=== PATIENT | male | born 1950 | race Caucasian/White ===

== ENCOUNTER → 2021-03-21 | Outpatient (CLI) | payer OTHER ==
[~2021-03-21] MED LIST: ALEN70; ASPI325; CEPH500 PO; HYDACE10B PO; IBUP400; LACT10SY PO; MAGCIT300 PO
[2021-03-21 18:31] LABS: Alanine Aminotransfer (ALT/SGP 41 U/L (12-78); Albumin, Blood 4.1 g/dL (3.4-5.0); Albumin/Globulin Ratio 1.1 (0.8-1.8); Alk Phos 73 U/L (50-136); Anion Gap 7 mmol/L (6-16); Aspartate Aminotrans (AST/SGOT 14 U/L (12-37); Bilirubin, Total 0.3 mg/dL (0.1-1.0); Blood Urea Nitrogen 28 mg/dL (8-24); Bun/Creatinine Ratio 22.8 (12.0-20.0); CO2, Blood 23 mmol/L (21-32); Calcium, Blood 9.2 mg/dL (8.5-10.1); Chloride, Blood 103 mmol/L (98-108); Creatinine, Blood 1.23 mg/dL (0.60-1.20); Globulin, Blood 3.8 g/dL (2.2-4.0); Glomerular Filtration Rate >60 (60-); Glucose, Blood 364 mg/dL (70-99); Potassium, Blood 4.2 mmol/L (3.5-5.5); Sodium, Blood 133 mmol/L (136-145); Total Protein, Blood 7.9 g/dL (6.4-8.2)
[2021-03-21 18:53] LABS: BASOPHILS ABSOLUTE AUTO 0.03 K/mm3 (0.00-0.23); BASOPHILS PERCENT AUTO 1 % (0-2); EOSINOPHILS ABSOLUTE AUTO 0.12 K/mm3 (0.00-0.68); EOSINOPHILS PERCENT AUTO 2 % (0-6); Hemoglobin 15.1 g/dL (13.5-17.5); IMMATURE GRAN ABSOLUTE AUTO 0.01 K/mm3 (0.00-0.10); IMMATURE GRAN PERCENT AUTO 0 % (0-1); LYMPHOCYTES ABSOLUTE AUTO 0.92 K/mm3 (0.84-5.20); LYMPHOCYTES PERCENT AUTO 18 % (21-46); MONOCYTES PERCENT AUTO 6 % (4-13); Mean Corpuscular HGB 31.5 pg (26.0-34.0); Mean Corpuscular HGB Conc 35.1 g/dL (31.5-36.5); Mean Corpuscular Volume 90 fL (80-100); Mean Platelet Volume 9.8 fL (9.1-12.4); NEUTROPHILS ABSOLUTE AUTO 3.66 K/mm3 (1.96-9.15); NEUTROPHILS PERCENT AUTO 73 % (41-73); Platelet Count 223 K/mm3 (150-400); RDW Coefficient Variation 12.6 % (11.7-14.2); RDW Standard Deviation 40.9 fL (35.1-46.3); Red Blood Cell Count 4.79 M/mm3 (4.30-5.90); White Blood Cell Count 5.04 K/mm3 (4.00-11.30)
== END | disposition home or self-care (01) ==
LOC: LAB SHORT 18:10
PROVIDERS: Family Medicine
DX: I10 Essential (primary) hypertension (principal)
CPT/HCPCS: 80053; 85025

== ENCOUNTER 2021-05-31 14:56 | Inpatient (IN) | payer OTHER ==
[~2021-05-31] VITALS: Ht 177.8 cm; Wt 96.8 kg
[2021-05-31 15:18] LABS: Bicarbonate Venous 6.8 mmol/L (24.0-30.0); PO2 Venous 85.2 mmHg (38-42)
[2021-05-31 15:19] LABS: pH Blood Venous 6.82 (7.34-7.37)
[2021-05-31 15:23] LABS: Hemoglobin 15.3 g/dL (13.5-17.5); Mean Corpuscular HGB 31.8 pg (26.0-34.0); Mean Corpuscular HGB Conc 27.3 g/dL (31.5-36.5); Mean Corpuscular Volume 116 fL (80-100); Mean Platelet Volume 11.8 fL (9.1-12.4); Platelet Count 359 K/mm3 (150-400); RDW Coefficient Variation 14.3 % (11.7-14.2); RDW Standard Deviation 63.1 fL (35.1-46.3); Red Blood Cell Count 4.81 M/mm3 (4.30-5.90); White Blood Cell Count 6.89 K/mm3 (4.00-11.30)
[2021-05-31] MEDS ORDERED: Prinivil10 MG PO (15:25)
[2021-05-31] MEDS ORDERED: HYDROCHLOROTH12.5 MG PO (15:25)
[2021-05-31] MEDS ORDERED: NEURONTIN300 MG PO (15:25)
[2021-05-31] MEDS ORDERED: IBU800 M1 PO (15:26)
[2021-05-31] MEDS ORDERED: FOSAMAX70 MG PO (15:27)
[2021-05-31 15:40] LABS: Calcium, Ionized (POC) 1.03 mmol/L (1.10-1.46); Chloride (POC) 105 mmol/L (98-108); Creatinine (POC) 5.8 mg/dL (0.8-1.3); Glucose (ISTAT POC) >700 mg/dL (70-99); Hemoglobin (POC) 16.3 g/dL (13.5-17.5); Potassium (POC) 7.7 mmol/L (3.5-5.5); Sodium (POC) 133 mmol/L (135-148); Total CO2 (POC) 9 mmol/L (21-32)
[2021-05-31 15:41] LABS: Ethanol (Alcohol), Blood, Med <3 mg/dL
[2021-05-31 15:52] LABS: Magnesium, Blood 4.9 mg/dL (1.6-2.4)
[2021-05-31 16:00] LABS: BAND PERCENT MAN 22 % (0-8); BASOPHILS PERCENT MAN 0 % (0-2); EOSINOPHILS PERCENT MAN 0 % (0-6); LYMPHOCYTES ABSOLUTE MAN 0.62 K/mm3 (0.84-5.20); LYMPHOCYTES PERCENT MAN 9 % (21-46); METAMYELOCYTE ABSOLUTE MAN 0.13 K/mm3 (0.00-0.00); METAMYELOCYTE PERCENT MAN 2 % (0-0); MONOCYTES ABSOLUTE MAN 0.13 K/mm3 (0.16-1.47); MONOCYTES PERCENT MAN 2 % (4-13); NEUTROPHILS ABSOLUTE MAN 5.99 K/mm3 (1.96-9.15); SEG NEUTROPHILS PERCENT MAN 65 % (41-73); TOTAL CELLS COUNTED 100
[2021-05-31 16:01] LABS: Alanine Aminotransfer (ALT/SGP 27 U/L (12-78); Albumin, Blood 3.2 g/dL (3.4-5.0); Albumin/Globulin Ratio 0.8 (0.8-1.8); Alk Phos 112 U/L (50-136); Anion Gap 27 mmol/L (6-16); Aspartate Aminotrans (AST/SGOT 39 U/L (12-37); Bilirubin, Total 0.4 mg/dL (0.1-1.0); Blood Urea Nitrogen 145 mg/dL (8-24); CO2, Blood 8 mmol/L (21-32); Calcium, Blood 8.9 mg/dL (8.5-10.1); Chloride, Blood 93 mmol/L (98-108); Globulin, Blood 4.1 g/dL (2.2-4.0); Glomerular Filtration Rate 10 (60-); Glucose, Blood 1690 mg/dL (70-99); Potassium, Blood 7.5 mmol/L (3.5-5.5); Sodium, Blood 128 mmol/L (136-145); Total Protein, Blood 7.3 g/dL (6.4-8.2)
[2021-05-31 16:09] LABS: U Amphetamine Screen Not Detected; U Barbituate Screen Not Detected; U Benzodiazapine Screen Not Detected; U Buprenorphine Screen Not Detected; U Cannabinoids Screen Not Detected; U Cocaine Screen Not Detected; U Methadone Screen Not Detected; U Methamphetamine Screen Not Detected; U Opiates Screen Not Detected; U Oxycodone Screen Not Detected; U Phencyclidine Screen Not Detected; U Propoxyphene Screen Not Detected
[2021-05-31 16:17] LABS: Creatine Kinase MB 2.1 ng/mL (0.0-3.6); Creatine Kinase MB Index 0.6 (0.0-4.0)
[2021-05-31 17:06] LABS: SARS-Cov-2 (COVID-19) PCR, MMC NEGATIVE (NEGATIVE)
[2021-05-31 17:20] LABS: International Normalized Ratio 1.09; Prothrombin Time Results 11.7 Sec (9.7-11.5)
[2021-05-31 18:03] LABS: Bicarbonate Venous 8.4 mmol/L (24.0-30.0); PCO2 Venous 34.2 mmHg (38-42); PO2 Venous 76.7 mmHg (38-42); pH Blood Venous 6.95 (7.34-7.37)
[2021-05-31 18:04] LABS: Base Excess Venous -24.5 mmol/L
[2021-05-31 18:15] LABS: Glucose, Blood 1586 mg/dL (70-99)
[2021-05-31 18:50] LABS: Bun/Creatinine Ratio 26.4 (12.0-20.0); Creatinine, Blood 5.31 mg/dL (0.60-1.20)
[2021-05-31 19:27] LABS: Potassium, Blood 5.5 mmol/L (3.5-5.5)
--- NOTE | 2021-05-31 20:00 | NUR ---
PT ADMITTED TO ROOM ICU 04 UNDER ICU STATUS FOR DKA. SLIDE TRANSFERRED TO BED. PT VENTED AND IS MAINTAINING SATURATIONS > 90 PERCENT. ON INSULIN DRIP AT 10 UNITS PER HOUR. LEVOPHED DRIP TO MAINTAIN MAP > 65. OGT CONNECTED TO LOW WALL SUCTION WITH RETURN OF LIQUID BROWNISH FLUID. DR BERG IN ROOM TO SEE PT. ORDERS RECEIVED. PLAN FOR HOURLY GLUCOSE CHECKS. PT HAS QUAD LUMEN CENTRAL LINE IN RIGHT UPPER CHEST. SAFESET SET UP FOR BLOOD DRAWS. WILL REVIEW CHART AND PLAN OF CARE FOR THIS PT.
[2021-05-31 20:18] LABS: Base Excess Venous -14.8 mmol/L; Bicarbonate Venous 13.9 mmol/L (24.0-30.0); PCO2 Venous 31.9 mmHg (38-42); PO2 Venous 45.2 mmHg (38-42); pH Blood Venous 7.22 (7.34-7.37)
[2021-05-31 20:43] LABS: Bun/Creatinine Ratio 28.8 (12.0-20.0); Calcium, Blood 8.6 mg/dL (8.5-10.1); Creatinine, Blood 4.83 mg/dL (0.60-1.20); Potassium, Blood 4.2 mmol/L (3.5-5.5)
[2021-05-31 22:12] LABS: Bun/Creatinine Ratio 28.2 (12.0-20.0); Calcium, Blood 8.3 mg/dL (8.5-10.1); Creatinine, Blood 4.64 mg/dL (0.60-1.20); Potassium, Blood 3.9 mmol/L (3.5-5.5)
[2021-05-31 22:13] LABS: Base Excess Venous -13.2 mmol/L; Bicarbonate Venous 15.2 mmol/L (24.0-30.0); PCO2 Venous 27.9 mmHg (38-42); PO2 Venous 45.4 mmHg (38-42); pH Blood Venous 7.29 (7.34-7.37)
--- NOTE | 2021-06-01 | NUR ---
HOURLY GLUCOSE CHECKS CONTINUE. PT MAINTAINS WITH VENT SETTINGS UNCHANGED. DR BENOIT HAS MADE ADJUSTMENTS IN ORDERS, AND HAS ADDED VASOPRESSIN TO PRESSORS FOR BLOOD PRESSURE SUPPORT. SEE VITAL SIGN FLOWSHEET FOR VALUES. HAVE SUCTIONED PT PER ETT WITH NO RETURN OF SECRETIONS.
[2021-06-01 00:47] LABS: Glucose, Blood 1011 mg/dL (70-99)
[2021-06-01 01:52] LABS: Bun/Creatinine Ratio 30.3 (12.0-20.0); Creatinine, Blood 4.12 mg/dL (0.60-1.20)
[2021-06-01 02:44] LABS: Glucose, Blood 1035 mg/dL (70-99)
[2021-06-01 03:29] LABS: Glucose, Blood 1016 mg/dL (70-99)
[2021-06-01 05:15] LABS: Anion Gap 18 mmol/L (6-16); Blood Urea Nitrogen 122 mg/dL (8-24); Bun/Creatinine Ratio 28.5 (12.0-20.0); CO2, Blood 13 mmol/L (21-32); Calcium, Blood 7.2 mg/dL (8.5-10.1); Chloride, Blood 106 mmol/L (98-108); Creatinine, Blood 4.28 mg/dL (0.60-1.20); Glomerular Filtration Rate 15 (60-); Glucose, Blood 1035 mg/dL (70-99); Potassium, Blood 4.4 mmol/L (3.5-5.5); Sodium, Blood 137 mmol/L (136-145)
[2021-06-01 05:28] LABS: Magnesium, Blood 2.7 mg/dL (1.6-2.4)
[2021-06-01 06:30] LABS: Glucose, Blood 1018 mg/dL (70-99)
--- NOTE | 2021-06-01 06:45 | NUR ---
PT HAS HAD STEADY NEED TO HAVE INCREASES IN PRESSORS. HAVE ADDED EPINEPHERINE TO HELP KEEP MAP > 60. CALL MADE TO PT'S DAUGHTER WITH NOTED PHONE WAS DISCONNECTED. LACTIC ACID LEVEL RECEIVED AT 7.2. DR BENOIT WAS MADE AWARE OF PT'S GLUCOSE AND HIS BLOOD PRESSURES WELL THE LACTIC ACID LEVEL. ORDERS WERE RECEIVED. WILL CONTINUE TO MONITOR PT, AND WILL REPORT OFF TO ONCOMING RN
[2021-06-01 06:48] LABS: Glucose, Blood 962 mg/dL (70-99)
--- NOTE | 2021-06-01 07:30 | NUR ---
ASSUMED CARE BEDSIDE REPORT RECIEVED. PT IS INTUBATED AND SEDATED. VENT SETTINGS AC 16, TV 500, PEEP 5, FIO2 75%. PT RR 30'S. PT SEDATED WITH PROPOFOL AT 40 MCG/KG/MIN. CENTRAL LINE IN PLACE TO [facility]. LEVOPHED INFUSING AT 30 MCG/MIN, EPI 10 MCG/MIN, AND VASOPRESSIN 0.04 UNITS/HR. INSULIN INFUSING AT 13 UNIT/HR AND 1/2 NS WITH 40 MEQ KCL AT 250 ML/HR. OGT IN PLACE WITH DARK BROWN LIQUID OUTPUT NOTED. MILTON TEMP PROBE IN PLACE WITH DARK YELLOW OUTPUT NOTED. PT WITHOUT COUGH OR GAG WITH SUCTION. SMALL FURROW OF BROW NOTED. DOES NOT WITHDRAW EXTREMITIES TO NOXIOUS STIMULI. NO FAMILY PRESENT. WILL CONTINUE TO MONITOR.
[2021-06-01 07:39] LABS: Anion Gap 17 mmol/L (6-16); Blood Urea Nitrogen 120 mg/dL (8-24); CO2, Blood 13 mmol/L (21-32); Chloride, Blood 107 mmol/L (98-108); Creatinine, Blood 4.29 mg/dL (0.60-1.20); Glomerular Filtration Rate 15 (60-); Glucose, Blood 889 mg/dL (70-99); Potassium, Blood 5.1 mmol/L (3.5-5.5); Sodium, Blood 137 mmol/L (136-145)
--- NOTE | 2021-06-01 08:29 | NUR ---
DR BECERRA UPDATE DR BECERRA CALLED AND UPDATED TO CURRENT PT CONDITION AND DECLINE IN BP. EPI GTT AT 20 MCG/MIN, LEVOPHED AT 30 MCG/MIN, AND VASOPRESSIN AT 0.04 UNITS/HR. ORDERS RECIEVED TO NOT FURTHER ESCALATE PRESSORS AT THIS TIME. ATTEMPTED TO CONTACT PT DAUGHTER AND NEICE. WILL CONTINUE TO MONITOR.
[2021-06-01 08:55] LABS: Glucose, Blood 813 mg/dL (70-99)
--- NOTE | 2021-06-01 09:15 | NUR ---
FAMILY UPDATE PT GIULIA LYNN CALLED BACK. UPDATED LEAH ABOUT CURRENT PT CONDITION AND SUPPORTIVE DEVICES/MEDS. LEAH REQUESTED TO MAKE PT DNR STATUS AT THIS TIME DUE TO CRITICAL CONDITION. PT REMAINS HYPOTENSIVE, PRESSORS UNCHANGED. DR BECERRA NOTIFIED. LEAH TO COME IN TO SEE PT.
[2021-06-01 11:29] LABS: Anion Gap 18 mmol/L (6-16); Blood Urea Nitrogen 111 mg/dL (8-24); Bun/Creatinine Ratio 26.9 (12.0-20.0); CO2, Blood 11 mmol/L (21-32); Calcium, Blood 6.5 mg/dL (8.5-10.1); Chloride, Blood 111 mmol/L (98-108); Creatinine, Blood 4.12 mg/dL (0.60-1.20); Glomerular Filtration Rate 15 (60-); Glucose, Blood 721 mg/dL (70-99); Potassium, Blood 5.3 mmol/L (3.5-5.5); Sodium, Blood 140 mmol/L (136-145)
--- NOTE | 2021-06-01 11:31 | NUR ---
pt aon carolyn homodyanmic support. His niece is here to visit. pt has a daughter who is not wanting to make decisions. Family expresses fears that she is using drugs. phone becca dempseyth her and niece and confirmed by nursing staff. Daughter defers to niece to be his decision maker. Review of patient with niece states he has been more inactive for some time and slowly declining. she states he would not want to be kept alive if he is getting sicker. They believe stronly in with dignity. If physican say he is worse she will withdraw care and place him on comfort.
[2021-06-01 11:57] LABS: Glucose, Blood 664 mg/dL (70-99)
[2021-06-01 14:18] LABS: Hematocrit 35.8 % (37.0-53.0); Hemoglobin 12.1 g/dL (13.5-17.5); Mean Corpuscular HGB 32.6 pg (26.0-34.0); Mean Corpuscular HGB Conc 33.8 g/dL (31.5-36.5); Mean Corpuscular Volume 97 fL (80-100); Mean Platelet Volume 10.9 fL (9.1-12.4); Platelet Count 143 K/mm3 (150-400); RDW Coefficient Variation 13.9 % (11.7-14.2); RDW Standard Deviation 49.1 fL (35.1-46.3); Red Blood Cell Count 3.71 M/mm3 (4.30-5.90); White Blood Cell Count 4.04 K/mm3 (4.00-11.30)
[2021-06-01 14:32] LABS: Beta-hydroxybutyrate 1.1 mg/dL (0.2-2.8)
[2021-06-01 14:36] LABS: Albumin, Blood 2.2 g/dL (3.4-5.0); Anion Gap 15 mmol/L (6-16); Blood Urea Nitrogen 105 mg/dL (8-24); Bun/Creatinine Ratio 27.3 (12.0-20.0); CO2, Blood 11 mmol/L (21-32); Calcium, Blood 6.1 mg/dL (8.5-10.1); Chloride, Blood 114 mmol/L (98-108); Creatinine, Blood 3.85 mg/dL (0.60-1.20); Glomerular Filtration Rate 17 (60-); Glucose, Blood 596 mg/dL (70-99); Phosphorus, Blood 2.9 mg/dL (2.5-4.9); Potassium, Blood 5.3 mmol/L (3.5-5.5); Sodium, Blood 140 mmol/L (136-145)
[2021-06-01 15:01] LABS: Vancomycin, Random 11.9 ug/mL
[2021-06-01 15:06] LABS: BAND PERCENT MAN 37 % (0-8); BASOPHILS PERCENT MAN 0 % (0-2); EOSINOPHILS PERCENT MAN 0 % (0-6); LYMPHOCYTES ABSOLUTE MAN 0.08 K/mm3 (0.84-5.20); LYMPHOCYTES PERCENT MAN 2 % (21-46); METAMYELOCYTE ABSOLUTE MAN 1.37 K/mm3 (0.00-0.00); METAMYELOCYTE PERCENT MAN 34 % (0-0); MONOCYTES ABSOLUTE MAN 0.04 K/mm3 (0.16-1.47); MONOCYTES PERCENT MAN 1 % (4-13); MYELOCYTE ABSOLUTE MAN 0.16 K/mm3 (0.00-0.00); MYELOCYTE PERCENT MAN 4 % (0-0); NEUTROPHILS ABSOLUTE MAN 2.38 K/mm3 (1.96-9.15); SEG NEUTROPHILS PERCENT MAN 22 % (41-73); TOTAL CELLS COUNTED 100
--- NOTE | 2021-06-01 17:26 | NUR ---
SHIFT SUMMARY PT REMAINS INTUBATED AND NOT SEDATED. PT VENT SETTINGS AC 16, TV 500, PEEP 8, FIO2 80%. PT WITH RR 30-40'S. PT IS MORE AWAKE THIS AFTERNOON. PT WITH SPONTANEOUS EXTREMITY MOVEMENTS AND OPENS EYES TO VOICE. PT DOES NOT FOLLOW COMMANDS, BUT LOOKS TOWARDS NAME WHEN CALLED. PT REMAINS PROFOUNDLY HYPOTENSIVE DESPITE LEVOPHED AT 30 MCG/MIN, EPI GTT 20 MCG/MIN, VASOPRESSIN 0.04 UNITS/HR, AND CONTINUOUS NS FLUID BOLUSES. SBP 60-90'S. PER DR BECERRA, NO FURTHER ESCALATION OF PRESSORS. CENTRAL LINE REMAINS IN PLACE WITH SAFESET IN PLACE. LINE FLUSHES WELL IN ALL PORTS, BUT DOES NOT DRAW BACK FROM ANY PORTS THIS AFTERNOON. INSULIN GTT INFUSING. SEE FLOWSHEE FOR ALL GTT TITRATIONS THIS SHIFT. OGT REMAINS IN PLACE TO LIS WITH DARK BROWN LIQUID OUTPUT. MILTON TEMP PROBE REMAINS IN PLACE WITH DARK YELLOW OUTPUT NOTED. SBW RESTRAINTS IN PLACE. PT GIULIA HAS SPENT MOST OF THE DAY AT BEDSIDE. WILL CONTINUE TO MONITOR AND REPORT OFF TO ONCOMING RN.
[2021-06-01 21:09] LABS: PCO2 Arterial 23.7 mmHg (35-45); PO2 Arterial 77.9 mmHg (80-100); pH Blood Arterial 7.21 (7.35-7.45)
[2021-06-01 21:14] LABS: Albumin, Blood 2.3 g/dL (3.4-5.0); Anion Gap 10 mmol/L (6-16); Blood Urea Nitrogen 90 mg/dL (8-24); Bun/Creatinine Ratio 26.6 (12.0-20.0); CO2, Blood 11 mmol/L (21-32); Calcium, Blood 6.1 mg/dL (8.5-10.1); Chloride, Blood 118 mmol/L (98-108); Creatinine, Blood 3.38 mg/dL (0.60-1.20); Glomerular Filtration Rate 19 (60-); Glucose, Blood 318 mg/dL (70-99); Phosphorus, Blood 2.9 mg/dL (2.5-4.9); Potassium, Blood 5.8 mmol/L (3.5-5.5); Sodium, Blood 139 mmol/L (136-145)
--- NOTE | 2021-06-01 22:08 | NUR ---
ASSUMED PT CARE FROM [facility] AT 1915 PT INTUBATED AND NOT ON ANY SEDATION. VENT AC 16, VT 500, PEEP 8, FIO2 80%. RR 40'S. SPO2 >90%. PT OPENS EYES SPONTANEOUSLY AND TRACKS. MOVES ALL EXTREMITIES. FOLLOWS COMMANDS AND NODS HEAD YES/NO TO PAIN. DENIES PAIN AT TIME OF BEDSIDE REPORT. ETT 8.0 AND 26CM AT THE LIP. PT IS CYANOTIC TO LIPS AND BILATERAL EARS. EPI MAXED AT 20MCG/MIN, LEVOPHED AT 30MCG/MIN, AND VASOPRESSIN 0.04 UNITS/MIN. 1/2 NS WITH 40MEQ OF POTASSIUM INFUSING AT 250MLS/HR. NS TKO. INSULIN AT 15 UNITS/HR WITH GLUCOSE >300. CENTRAL LINE TO RIGHT SUBCLAVIAN SITE INFUSING. 18G TO RIGHT AC. FIELD START PULLED TO LEFT AC D/T LEAKING. OG IS TO LIS WITH BROWN OUTPUT NOTED. ABDOMEN IS SEVERLY DISTENDED WITH NO BT TO UPPER QUADRANTS AND HYPOACTIVE TO BILATERAL LOWER QUADRANTS. TEMP MILTON IS PATENT AND DRAINING DARK, MANISHA COLORED URINE TO GRAVITY. TMAX 100.0. BP'S LABILE WITH FAINT PULSES TO ALL EXTREMITIES; THEREFORE, CONSULTED WITH DR. BECERRA REGARDING PLACEMENT OF ARTERIAL LINE, WHICH HE WAS SUCCESSFULLY ABLE TO ACCESS TO RIGHT AXILLARY ARTERY; PRESSURE BAG AND TUBING CONNECTED WITH GOOD WAVEFORM; ZERO'D AT PHLEBOSTATIC AXIS. SBP 180'S UPON ZEROING LINE; THEREFORE EPI WAS ABLE TO BE TITRATED OFF AND LEVOPHED CURRENTLY DOWN TO 25MCG/MIN. LABS SHOWED ELEVATED POTASSIUM IN WHICH RESULTS WERE CALLED TO DR. BECERRA WITH ORDERS TO DROP 1/2NS WITH 40MEQ OF POTASSIUM DOWN TO 125MLS/HR. NEW ORDERS FOR 1 AMP OF CALCIUM CHLORIDE NOW AND ONE IN 12 HOURS. NO FAMILY AT BEDSIDE AT THIS TIME. WILL CONTINUE TO MONITOR.
--- NOTE | 2021-06-01 23:00 | NUR ---
ASSUMED PT CARE AT 1915 FROM [facility]INO PT INTUBATED AND SEDATED. PROPOFOL AT 40MCG/KG/MIN. PRECEDEX AT 0.03 MCG/KG/HR. PT GRIMACES AND WITHDRAWALS FROM PAIN. DOES NOT OPEN EYES OR FOLLOW COMMANDS ON SEDATION; THEREFORE, DECREASED PROPOFOL TO 20MCG/KG/MIN AND PRECEDEX TO 0.02 MCG/KG/HR. PT ATTEMPTING TO MOUTH WORDS AROUND ETT WITH BROWS FURROWED; THEREFORE, THEY DON'T APPEAR TO BE KIND WORDS HE IS ATTEMPTING TO MOUTH. PT DOES SQUEEZE HAND UPON COMMAND. NSR WITH HR 70'S; BP'S LABILE; THEREFORE, HELD NORVASC D/T HYPOTENSIVE AT TIMES WITH SBP NOTED TO BE LOW AT 70. PIVOT 1.5 INFUSING AT GOAL OF 25MLS/HR. RECTAL TUBE IN PLACE DRAINING BROWN LIQUID STOOL TO GRAVITY. MILTON CATHETER PATENT AND DRAINING YELLOW URINE TO GRAVITY. APPLIED ANTIFUNGAL POWDER TO GROIN RASH AND BUTTOCKS. ALSO APPLIED HYDROCOLLOID DRESSING TO STAGE II PRESSURE ULCER ON COCCYX. PICC LINE TO RIGHT UPPER ARM. ETT 8.0 AND 26CM AT THE TEETH. VENT AC 14, VT 500, PEEP 5, FIO2 30%. RR 14, SPO2 >90%. SEE SHIFT SUMMARY FOR FURTHER DETAILS.
[2021-06-02 01:16] LABS: Albumin, Blood 2.3 g/dL (3.4-5.0); Anion Gap 11 mmol/L (6-16); Blood Urea Nitrogen 92 mg/dL (8-24); Bun/Creatinine Ratio 27.3 (12.0-20.0); CO2, Blood 9 mmol/L (21-32); Calcium, Blood 6.7 mg/dL (8.5-10.1); Chloride, Blood 120 mmol/L (98-108); Creatinine, Blood 3.37 mg/dL (0.60-1.20); Glomerular Filtration Rate 19 (60-); Glucose, Blood 195 mg/dL (70-99); Phosphorus, Blood 3.4 mg/dL (2.5-4.9); Potassium, Blood 7.2 mmol/L (3.5-5.5); Sodium, Blood 140 mmol/L (136-145)
--- NOTE | 2021-06-02 01:30 | NUR ---
REASSESSMENT PT REMAINED CYANOTIC TO LIPS AND BILATERAL EARS. NOTED MOTTLING THAT STARTED AROUND MID CHEST DOWN TO PELVIS AND UPPER THIGHS. UNABLE TO OBTAIN POPLITEAL OR DORSALIS PEDIS PULSE TO LLE. SOLE OF FOOT TO LLE WAS CYANOTIC WELL. PT CONVERTED TO AFIB RHYTHM AROUND 0030; RATE REMAINED 70-90'S WITH BP'S LABILE, BUT STABLE WITH LEVOPHED TITRATING BETWEEN 20-30MCG/MIN. VASOPRESSIN AT 0.04 UNITS/MIN. OBTAINED EKG AND LABS, WHICH WERE SENT OFF PRIOR TO CALLING DR. BECERRA. WHEN LABS RESULTED WITH A CRITICAL POTASSIUM OF 7.2 AND CO2 OF 9. STOPPED THE 1/2NS WITH 40MEQ OF POTASSIUM AND CALLED DR. BECERRA. NEW ORDERS FOR BICARB WITH 3 AMPS TO INFUSE AT 125ML/HR. UPDATED HERNAN ON MOTTLING AND PULSES WITH NO NEW ORDERS.
--- NOTE | 2021-06-02 03:03 | NUR ---
TIME OF PT NOTED TO HAVE A LONG PAUSE WITH HR IN THE 50'S AT 0230. UPON ENTERING THE ROOM THE LEVOPHED AND VASOPRESSIN WERE BOTH INFUSING AT MAX DOSE. STARTED EPI AT MAX OF 20MCG/MIN WITH NO EFFECT. PT WENT ASYSTOLE AT 0233. NOTIFIED. LEFT MESSAGES WITH FAMILY.
== END 2021-06-02 02:33 | DRG 637 ==
LOC: ER 14:56 → ICUE 17:49 → ICUW 17:49 → ICUE 19:20
PROVIDERS: Emergency Medicine; Internal Medicine Critical Care Medicine; ADMIT Hospitalist
PROC: 02HV33Z Insertion of Infusion Device into Superior Vena Cava, Percutaneous Approach (ICD-10-PCS; principal; 2021-05-31)
PROC: 3E043XZ Introduction of Vasopressor into Central Vein, Percutaneous Approach (ICD-10-PCS; 2021-05-31)
PROC: 5A1945Z Respiratory Ventilation, 24-96 Consecutive Hours (ICD-10-PCS; 2021-05-31)
DX: E11.11 Type 2 diabetes mellitus with ketoacidosis with coma (principal); J96.01 Acute respiratory failure with hypoxia; G92 Toxic encephalopathy; N17.9 Acute kidney failure, unspecified; E87.0 Hyperosmolality and hypernatremia; M62.82 Rhabdomyolysis; Z66 Do not resuscitate; I46.9 Cardiac arrest, cause unspecified; Z51.5 Encounter for palliative care; Z20.822 Contact with and (suspected) exposure to COVID-19; R57.1 Hypovolemic shock; E83.41 Hypermagnesemia; F32.9 Major depressive disorder, single episode, unspecified; Z60.2 Problems related to living alone; E87.5 Hyperkalemia; Z98.890 Other specified postprocedural states; Z87.891 Personal history of nicotine dependence; Z88.0 Allergy status to penicillin; Z79.83 Long term (current) use of bisphosphonates; Z79.899 Other long term (current) drug therapy; Z59.0 Homelessness; Z78.1 Physical restraint status
CPT/HCPCS: 31720; 36415; 36556; 36620; 51702; 70450; 71045; 80047; 80048; 80053; 80069; 80202; 82010; 82550; 82553; 82803; 82947; 83605; 83735; 85014; 85025; 85610; 87070; 87077; 87186; 87205; 93005; 93010; 94002; 94003; 96361-59; 96365-59; 96366-59; 96368; 99285-25; A9270; C1751; G0480; J0171; J0610; J0692; J0696; J1650; J1720; J1815; J2250; J2704; J2765; J3010; J3370; J3480; J7030; J7040; J7050; J7060; J7070; J7120; P9046; U0004